=== PATIENT | female | born 1990 | race American Indian/Alaskan Native ===

== ENCOUNTER 2017-01-25 10:25 | Emergency (ER) | payer SELFPAY ==
[2017-01-25 11:05] LABS: Basophils % (Auto) 0.7 % (0.0-1.8); Eosinophils % (Auto) 0.7 % (0.0-4.3); Hematocrit 40.1 % (30.3-42.9); Hemoglobin 13.6 gm/dl (10.1-14.3); Mean Corpuscular HGB Conc 34 % (30-34); Mean Corpuscular Hemoglobin 31 pg (28-32); Mean Corpuscular Volume 92 fl (79-97); Platelet Count 431 K/mm3 (140-440); Red Blood Count 4.35 M/mm3 (3.65-5.03); Red Cell Distribution Width 14.5 % (13.2-15.2); White Blood Count 11.1 K/mm3 (4.5-11.0)
[2017-01-25 11:19] LABS: Bilirubin,Urine NEG (Negative); Blood,Urine NEG (Negative); Ketones,Urine NEG (Negative); Leukocyte Esterase,Urine TR (Negative); Mucus,Urine 1+ /HPF; Nitrite,Urine NEG (Negative); Protein,Urine <15 mg/dL mg/dL (Negative); Urobilinogen,Urine < 2.0 mg/dL (<2.0)
[2017-01-25 11:24] LABS: Alanine Aminotransferase 11 units/L (7-56); Albumin/Globulin Ratio 1.2 %; Alkaline Phosphatase 48 units/L (35-129); Anion Gap 21 mmol/L; BUN/Creatinine Ratio 16; Blood Urea Nitrogen 8 mg/dL (7-17); Calcium 9.4 mg/dL (8.4-10.2); Carbon Dioxide 19 mmol/L (22-30); Chloride 100.4 mmol/L (98-107); Glucose 90 mg/dL (65-100); Lipase 18 units/L (13-60); Sodium 136 mmol/L (137-145); Total Protein 7.4 g/dL (6.3-8.2)
--- NOTE | 2017-01-25 22:12 | Emergency Department Report ---
ED Abdominal Pain HPI - General Chief Complaint: Abdominal Pain Stated Complaint: SOB, LEFT SIDE NUMB Time Seen by Provider: 01/25/17 21:58 Source: patient Mode of arrival: Ambulatory Limitations: No Limitations - History of Present Illness Initial Comments: 26-year-old female with past medical history of left leg sciatica presents to Hospital complaining of left flank pain radiating to the left lower abdomen since yesterday of 4 PM. Pain is sharp, intermittent, related not associated to 6 hours movement and palpation. Intermittent nausea and vomiting (2) reported. Patient denies vaginal discharge, vaginal bleeding, dysuria, hematuria, or fever. test was positive here patient's LMP 2016. Patient has history of 2 previous pregnancies with a stillborn at approximately 4-5 months and an . No living children or history of ectopic . Patient also complains of left flank pain with tingling to back of the leg with prolonged sitting. Severity scale (0 -10): 10 - Related Data Previous Rx's Medication Instructions Recorded Last Taken Type Ciprofloxacin HCl [Ciprofloxacin 500 mg PO BID #6 tablet 05/13/15 Unknown Rx TAB] Vit Calc,Iron,Folic 1 each PO DAILY #30 tablet 01/26/17 Unknown Rx [ Vitamins] Allergies Allergy/AdvReac Type Severity Reaction Status Date / Time No Known Allergies Allergy Verified 01/25/17 10:36 ED Review of Systems ROS: Stated complaint: SOB, LEFT SIDE NUMB Other details as noted in HPI Comment: All other systems reviewed and negative Other: Constitutional: No fevers chills Eyes: No eye pain visual changes ENT: No ear pain or throat pain Neck: Denies pain Respiratory: Denies cough wheezing shortness of breath Cardiovascular: Denies chest pain, palpitations, syncope GI: As per HPI : Denies dysuria, urinary frequency, or urgency Musculoskeletal: Left flank pain Skin: Denies rash, lesions, erythema Neurologic: Denies headache, weakness Psychiatric: Denies suicidal ideation, hallucinations Hematological/lymphatic: Denies easy bruising, lymphadenopathy ED Past Medical Hx - Past Medical History Previous Medical History?: Yes Hx Hypertension: No Additional medical history: sciatica - Surgical History Additional Surgical History: left ring finger - Social History Smoking Status: Never Smoker Substance Use Type: Marijuana - Medications Home Medications: Home Medications Medication Instructions Recorded Confirmed Last Taken Type Ciprofloxacin HCl [Ciprofloxacin 500 mg PO BID #6 tablet 05/13/15 Unknown Rx TAB] Vit Calc,Iron,Folic 1 each PO DAILY #30 tablet 01/26/17 Unknown Rx [ Vitamins] ED Physical Exam - General Limitations: No Limitations - Other Other exam information: General: No limitations, patient is alert in no acute distress Head exam: Atraumatic, normocephalic Eyes exam: Normal appearance, pupils equal reactive to light, extraocular movements intact ENT: Moist mucous membrane, normal oropharynx Neck exam: Normal inspection, full range of motion, no meningismus nontender Respiratory exam: Clear to auscultation bilateral, no wheezes, rales, crackles Cardiovascular: Normal rate and rhythm, normal heart sounds Abdomen: Soft, nondistended, and nontender, with normal bowel sounds, no rebound, or guarding Extremity: Full range of motion normal inspection no deformity Back: Normal Inspection, full range of motion,, minimal left flank tenderness Neurologic: Alert, oriented x3, cranial nerves intact, no motor or sensory deficit Psychiatric: normal affect, normal mood Skin: Warm, dry, intact ED Course Vital Signs 01/25/17 01/25/17 01/25/17 10:36 20:02 22:21 Temperature 98.3 F Pulse Rate 66 76 74 Respiratory 18 14 16 Rate Blood Pressure 135/76 138/89 Blood Pressure 126/62 [Left] O2 Sat by Pulse 97 100 95 Oximetry - Reevaluation(s) Reevaluation #1: 01/25/17 22:12 Patient declined pain medication at this time ED Medical Decision Making - Lab Data Result diagrams: 01/25/17 10:46 01/25/17 10:46 Lab Results 01/25/17 01/25/17 01/25/17 Range/Units 10:46 10:46 10:46 WBC 11.1 H (4.5-11.0) K/mm3 RBC 4.35 (3.65-5.03) M/mm3 Hgb 13.6 (10.1-14.3) gm/dl Hct 40.1 (30.3-42.9) % MCV 92 (79-97) fl MCH 31 (28-32) pg MCHC 34 (30-34) % RDW 14.5 (13.2-15.2) % Plt Count 431 (140-440) K/mm3 Lymph % (Auto) 22.2 (13.4-35.0) % [place] % (Auto) 5.7 (0.0-7.3) % Eos % (Auto) 0.7 (0.0-4.3) % Baso % (Auto) 0.7 (0.0-1.8) % Lymph # 2.5 (1.2-5.4) K/mm3 [place] # 0.6 (0.0-0.8) K/mm3 Eos # 0.1 (0.0-0.4) K/mm3 Baso # 0.1 (0.0-0.1) K/mm3 Seg Neutrophils % 70.7 H (40.0-70.0) % Seg Neutrophils # 7.9 H (1.8-7.7) K/mm3 Sodium 136 L (137-145) mmol/L Potassium 4.0 (3.6-5.0) mmol/L Chloride 100.4 (98-107) mmol/L Carbon Dioxide 19 L (22-30) mmol/L Anion Gap 21 mmol/L BUN 8 (7-17) mg/dL Creatinine 0.5 L (0.7-1.2) mg/dL Estimated GFR > 60 ml/min BUN/Creatinine Ratio 16 % Glucose 90 (65-100) mg/dL Calcium 9.4 (8.4-10.2) mg/dL Total Bilirubin 0.30 (0.1-1.2) mg/dL AST 14 (5-40) units/L ALT 11 (7-56) units/L Alkaline Phosphatase 48 (35-129) units/L Total Protein 7.4 (6.3-8.2) g/dL Albumin 4.0 (3.9-5) g/dL Albumin/Globulin Ratio 1.2 % Lipase 18 (13-60) units/L HCG, Qual Positive (Negative) HCG, Quant (0-4) mIU/mL Urine Color (Yellow) Urine Turbidity (Clear) Urine pH (5.0-7.0) Ur Specific [place] (1.003-1.030) Urine Protein (Negative) mg/dL Urine Glucose (UA) (Negative) mg/dL Urine Ketones (Negative) mg/dL Urine Blood (Negative) Urine Nitrite (Negative) Urine Bilirubin (Negative) Urine Urobilinogen (<2.0) mg/dL Ur Leukocyte Esterase (Negative) Urine WBC (Auto) (0.0-6.0) /HPF Urine RBC (Auto) (0.0-6.0) /HPF U Epithel Cells (Auto) (0-13.0) /HPF Urine Mucus /HPF 01/25/17 01/25/17 Range/Units 10:46 Unknown WBC (4.5-11.0) K/mm3 RBC (3.65-5.03) M/mm3 Hgb (10.1-14.3) gm/dl Hct (30.3-42.9) % MCV (79-97) fl MCH (28-32) pg MCHC (30-34) % RDW (13.2-15.2) % Plt Count (140-440) K/mm3 Lymph % (Auto) (13.4-35.0) % [place] % (Auto) (0.0-7.3) % Eos % (Auto) (0.0-4.3) % Baso % (Auto) (0.0-1.8) % Lymph # (1.2-5.4) K/mm3 [place] # (0.0-0.8) K/mm3 Eos # (0.0-0.4) K/mm3 Baso # (0.0-0.1) K/mm3 Seg Neutrophils % (40.0-70.0) % Seg Neutrophils # (1.8-7.7) K/mm3 Sodium (137-145) mmol/L Potassium (3.6-5.0) mmol/L Chloride (98-107) mmol/L Carbon Dioxide (22-30) mmol/L Anion Gap mmol/L BUN (7-17) mg/dL Creatinine (0.7-1.2) mg/dL Estimated GFR ml/min BUN/Creatinine Ratio % Glucose (65-100) mg/dL Calcium (8.4-10.2) mg/dL Total Bilirubin (0.1-1.2) mg/dL AST (5-40) units/L ALT (7-56) units/L Alkaline Phosphatase (35-129) units/L Total Protein (6.3-8.2) g/dL Albumin (3.9-5) g/dL Albumin/Globulin Ratio % Lipase (13-60) units/L HCG, Qual (Negative) HCG, Quant 52025 H (0-4) mIU/mL Urine Color Yellow (Yellow) Urine Turbidity Clear (Clear) Urine pH 6.0 (5.0-7.0) Ur Specific [place] 1.023 (1.003-1.030) Urine Protein <15 mg/dl (Negative) mg/dL Urine Glucose (UA) Neg (Negative) mg/dL Urine Ketones Neg (Negative) mg/dL Urine Blood Neg (Negative) Urine Nitrite Neg (Negative) Urine Bilirubin Neg (Negative) Urine Urobilinogen < 2.0 (<2.0) mg/dL Ur Leukocyte Esterase Tr (Negative) Urine WBC (Auto) 1.0 (0.0-6.0) /HPF Urine RBC (Auto) 3.0 (0.0-6.0) /HPF U Epithel Cells (Auto) 7.0 (0-13.0) /HPF Urine Mucus 1+ /HPF - Radiology Data Radiology results: report reviewed Transvaginal pelvic ultrasound, single live IUP 7 weeks 5 days. No free fluid. Ovaries normal - Medical Decision Making Plan discharge patient with outpatient follow-up with [facility]. vitamins will be ordered and Tylenol as needed for pain. - Differential Diagnosis , UTI, sciatica, ectopic, ovarian cyst Critical Care Time: No Critical care attestation.: If time is entered above; I have spent that time in minutes in the direct care of this critically ill patient, excluding procedure time. ED Disposition Clinical Impression: 7 weeks gestation of , Sciatica, left side Disposition: DC-01 TO HOME OR SELFCARE Is pt being admited?: No Does the pt Need Aspirin: No Condition: Stable Instructions: (ED), Sciatica (ED) Additional Instructions: Take Tylenol as needed for pain. Follow up with the [facility] doctor. Return if symptoms worsen as indicated by yourr discharge instructions Prescriptions: Vit Calc,Iron,Folic [ Vitamins] 1 each PO DAILY #30 tablet Referrals: MING CAMPBELL MD [Staff Physician] - 3-5 Days Time of Disposition: 00:25
[2017-01-25 22:21] VITALS: BP 126/62
--- NOTE | 2017-01-25 23:29 | Ultrasound Report ---
FINAL REPORT EXAM: US OB TRANSVAGINAL HISTORY: left abd pain, + TECHNIQUE: Ultrasound obstetrical transvaginal with Doppler evaluation PRIORS: None. FINDINGS: There is gestational sac within the uterus There is pole present with crown-rump length of 1.4 centimeters corresponding to estimated gestational age is 7 weeks 5 days. With estimated date of delivery September 08, 2017 cardiac activity is present with heart rate of 160 beats per minute. Right ovary is 2.8 x 2.8 x 1.7 centimeters Left ovary is 2.2 x 1.8 x 1.7 centimeters Ovaries are normal in size and echogenicity no free fluid identified within the cul-de-sac IMPRESSION: Single live intrauterine gestation estimated at 7 weeks 5 days
--- NOTE | 2017-01-25 23:30 | Ultrasound Report ---
FINAL REPORT EXAM: US OB \T\lt; = 14 WEEKS FETUS HISTORY: left abd pain, + TECHNIQUE: Ultrasound obstetrical transabdominal PRIORS: None. FINDINGS: There is gestational sac within the uterus There is pole present with crown-rump length of 1.4 centimeters corresponding to estimated gestational age is 7 weeks 5 days. With estimated date of delivery September 08, 2017 cardiac activity is present with heart rate of 160 beats per minute. Right ovary is 2.8 x 2.8 x 1.7 centimeters Left ovary is 2.2 x 1.8 x 1.7 centimeters Ovaries are normal in size and echogenicity no free fluid identified within the cul-de-sac IMPRESSION: Single live intrauterine gestation estimated at 7 weeks 5 days
== END 2017-01-26 00:41 | disposition home or self-care (01) ==
LOC: ED 10:25
DX: O26.891 Other specified pregnancy related conditions, first trimester (principal); M54.32 Sciatica, left side; F12.10 Cannabis abuse, uncomplicated; Z3A.01 Less than 8 weeks gestation of pregnancy
CPT/HCPCS: 36415; 76801; 76817; 80053; 81001; 83690; 84702; 84703; 85025

== ENCOUNTER 2017-04-15 15:47 | Observation (INO) | payer MEDICAID ==
[2017-04-15] MEDS ORDERED: LACTATED RINGERS 500 ML IV ONE (16:09)
--- NOTE | 2017-04-15 17:30 | Ultrasound Report ---
FINAL REPORT PROCEDURE: US OB > = 14 WEEKS FETUS TECHNIQUE: Real-time transabdominal sonography of the uterus, placenta, amniotic fluid, adnexa, and fetus was performed with image documentation. Measurements were obtained to determine age/size. M-mode Doppler was used to document heartbeat. CPT 44254 HISTORY: Cervical length, placental location, EFW. COMPARISON: Sonogram dated 01/25/2017. FINDINGS: LMP: 11/24/2016. Clinical age: 20 weeks 2 days. EDC: 08/31/2017. GENERAL: IUP: Single living intrauterine . Position: Breech. Placental position: Fundal left lateral grade 0, without previa. Amniotic fluid volume: Normal. MATERNAL: Uterus: Within normal limits. Cervical length: 3.9 cm. Internal Os: Closed. FETUS: Heart rate and rhythm: 156 beats per minute anatomic survey: Normal. Choroid plexus, cisterna magna, cerebellum, ventricle, stomach, kidneys, bladder, diaphragm, four-chamber heart, three-vessel cord/insertion, and limited visualization of the spine. MEASUREMENTS: BPD: 4.82 cm, 20 weeks 4 days HC: 17.91 cm, 20 weeks 2 days AC: 15.01 cm, 20 weeks 2 days FL: 3.29 cm, 20 weeks 2 days HC/AC: 1.19 Cephalic index: 81.1 Mean Gestational Age (composite criteria): 20 weeks 3 days Estimated Weight: 344 grams. Interval growth: Appropriate. Estimated Due Date (earliest scan): 08/30/2017 IMPRESSION: Single intrauterine gestation at 20 weeks 3 days estimated due date: 08/30/2017. Normal survey with appropriate growth. Breech presentation. Fundal left lateral grade 0 placenta. Cervical length 3.9 cm. EFW 344 grams.
[2017-04-15] MEDS ORDERED: TYLENOL PO PRN (18:19)
[2017-04-15] MEDS ORDERED: MYLICON PO PRN (18:19)
[2017-04-15] MEDS ORDERED: BENADRYL PO PRN (18:19)
[2017-04-15] MEDS ORDERED: ALUM-MAG HYDROX-SIMETH 200-200-20MG/5ML PO PRN (18:19)
[2017-04-15] MEDS ORDERED: MILK OF MAGNESIA PO PRN (18:19)
[2017-04-15] MEDS ORDERED: AMBIEN PO PRN (18:19)
[2017-04-15] MEDS ORDERED: ZOFRAN IV PRN (18:19)
[2017-04-15] MEDS ORDERED: COLACE PO PRN (18:19)
[2017-04-15] MEDS ORDERED: SENOKOT S PO PRN (18:19)
--- NOTE | 2017-04-15 18:29 | History and Physical Report ---
History of Present Illness Date of examination: 04/15/17 Date of admission: 04/15/17 16:09 Chief complaint: vaginal bleeding History of present illness: This is a 27 yo at 20 weeks came to triage after having bleeding with clots when she went to bathroom and stood up. She had some cramping. She had good fm. patient has care at [facility] and has seen a High risk for hx of loss at 20 weeks. She deneis n,v,f, chills . no other complaints. 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 denies: smoking, alcohol abuse, prescription drug abuse - Obstetrical History Expected Date of Delivery: 08/31/17 Actual Gestation: 20 Week(s) 2 Day(s) : 2 Para: 0 Hx # Term Pregnancies: 0 Number of Pregnancies: 1 Spontaneous Abortions: 0 Induced : 0 Number of Living Children: 0 Medications and Allergies Allergies Allergy/AdvReac Type Severity Reaction Status Date / Time No Known Allergies Allergy Verified 04/15/17 16:07 Home Medications Medication Instructions Recorded Confirmed Last Taken Type Vit Calc,Iron,Folic 1 each PO DAILY #30 tablet 01/26/17 04/15/17 21:00 Rx [ Vitamins] 1 Review of Systems All systems: negative Genitourinary: vaginal bleeding - Vital Signs Vital signs: Vital Signs Pulse BP 73 120/71 04/15/17 16:09 04/15/17 16:09 Temp Pulse Resp BP Pulse Ox 97.9 F 71 18 120/71 98 04/15/17 17:54 04/15/17 16:25 04/15/17 17:54 04/15/17 16:09 04/15/17 16:25 - Physical Exam Vulva: both: normal Vagina: Positive: other (blood clot in the vault no active bleeding : minimal ) Cervix: Positive: other (long thick and closed and posterior ) Adnexa: both: normal Anus/Rectum: Positive: normal perianal skin, heme negative Extremities: Positive: normal Deep Tendon Reflex Grade: Normal +2 - Obstetrical FHR: auscultation normal Cervical Dilatation: 0 Uterine Contraction Pattern: Absent Uterine Tone Measurement Phase: Resting Results All other labs normal. Assessment and Plan A/P IUP 20 weeks breech vaginal bleeding US indicated no s/sx of abruption cervix 3.9cm will observe for 23hrs seen by [facility] will call for consult for recommendations close monitor pad counts CBC and type and screen, abruption labs NICU consult
[2017-04-15 18:49] LABS: Basophils # (Auto) 0.1 K/mm3 (0.0-0.1); Basophils % (Auto) 0.7 % (0.0-1.8); Eosinophils # (Auto) 0.1 K/mm3 (0.0-0.4); Eosinophils % (Auto) 0.9 % (0.0-4.3); Hematocrit 31.6 % (30.3-42.9); Hemoglobin 10.8 gm/dl (10.1-14.3); Lymphocytes # (Auto) 2.3 K/mm3 (1.2-5.4); Lymphocytes % (Auto) 19.2 % (13.4-35.0); Mean Corpuscular HGB Conc 34 % (30-34); Mean Corpuscular Hemoglobin 31 pg (28-32); Mean Corpuscular Volume 91 fl (79-97); Monocytes # (Auto) 0.7 K/mm3 (0.0-0.8); Monocytes % (Auto) 5.7 % (0.0-7.3); Platelet Count 350 K/mm3 (140-440); Red Blood Count 3.48 M/mm3 (3.65-5.03); Red Cell Distribution Width 13.1 % (13.2-15.2)
[2017-04-15] MEDS ORDERED: LACTATED RINGERS 1,000 ML IV SCH (19:00)
[2017-04-15 21:20] LABS: INR 0.95 (0.87-1.13)
[2017-04-15 21:21] LABS: Partial Thromboplastin Time 29.7 Sec. (24.2-36.6)
[2017-04-16 07:39] VITALS: BP 124/60
--- NOTE | 2017-04-16 08:04 | Progress Note ---
Assessment and Plan A/P HD#2 IUP 20 weeks breech vaginal bleeding decreased US indicated no s/sx of abruption cervix 3.[facility] per her verbal recommendations patient may be discharged and she will arrange for f/u with them this week strict bleeding precautions all questions answered appt with [facility] this week Subjective - Subjective Date of service: 04/16/17 Principal diagnosis: vaginal bleeding Interval history: This is a 27 yo at 20 weeks came to triage after having bleeding with clots when she went to bathroom and stood up. She had some cramping. She had good fm. patient has care at [facility] and has seen a High risk for hx of loss at 20 weeks. She deneis n,v,f, chills . no other complaints. Patient reports: vaginal bleeding (decreased to brown discharge), movement normal, no new complaints, no loss of fluid, no contractions Objective - Vital Signs Vital Signs: Vital Signs - 12hr 04/15/17 04/16/17 20:37 07:42 Temperature 98.6 F Pulse Rate 81 77 Respiratory 20 Rate Blood Pressure 118/71 124/60 - Exam Breasts: normal Cardiovascular: Regular rate, Normal S1 Lungs: Clear to auscultation, Normal air movement Abdomen: Present: normal appearance, soft, normal bowel sounds. Absent: distention, tenderness, guarding Vulva: both: normal Uterus: Present: normal. Absent: firm, bogginess, tenderness FHR: auscultation normal Extremities: normal Deep Tendon Reflex Grade: Normal +2 - Labs Labs: Abnormal Labs 04/15/17 17:55 WBC 12.1 H RBC 3.48 L RDW 13.1 L Seg Neutrophils % 73.5 H Seg Neutrophils # 8.9 H Laboratory Results - last 24 hr 04/15/17 04/15/17 04/15/17 17:55 17:55 20:17 WBC 12.1 H RBC 3.48 L Hgb 10.8 Hct 31.6 MCV 91 MCH 31 MCHC 34 RDW 13.1 L Plt Count 350 Lymph % (Auto) 19.2 [place] % (Auto) 5.7 Eos % (Auto) 0.9 Baso % (Auto) 0.7 Lymph # 2.3 [place] # 0.7 Eos # 0.1 Baso # 0.1 Seg Neutrophils % 73.5 H Seg Neutrophils # 8.9 H PT 13.2 INR 0.95 APTT 29.7 Blood Type O POSITIVE Antibody Screen Negative
[2017-04-16] MEDS ORDERED: PRENATAL VITAMIN PO SCH (10:00)
== END 2017-04-16 09:20 | disposition home or self-care (01) ==
LOC: TRG 15:47 → LD 16:09
PROVIDERS: ADMIT Obstetrics & Gynecology; ATTEND Obstetrics & Gynecology
DX: O46.92 Antepartum hemorrhage, unspecified, second trimester (principal); Z3A.20 20 weeks gestation of pregnancy
CPT/HCPCS: 36415; 76805; 85025; 85610; 85730; 86850; 86900; 86901; 96360; 96361; G0378; J7120

== ENCOUNTER 2019-01-01 15:30 | Outpatient (CLI) | payer MEDICAID ==
[2019-01-01 18:00] VITALS: BP 127/69
--- NOTE | 2019-01-01 18:55 | Ultrasound Report ---
Limited OB Ultrasound Biophysical profile HISTORY: labor. TECHNIQUE: Grayscale and color Doppler imaging performed. COMPARISON: No recent pertinent exam is available FINDINGS: There is a single intrauterine gestation which is cephalic in presentation. BREA is [address] [place] is positioned left lateral. The heart rate is 1 45 bpm. On biophysical profile, the fetus received a score of 2 out of 2 for breathing movement, movement, po sture, and BREA for a total score of 8 out of 8. IMPRESSION: 1. Single viable intrauterine gestation as above. 2. Normal biophysical profile. Signer Name: Dmitri Enriquez MD Signed: 01/01/2019 6:51 PM Workstation Name: [id number]
== END 2019-01-01 19:10 | disposition home or self-care (01) ==
LOC: TRG 15:30
PROVIDERS: ATTEND Obstetrics & Gynecology
DX: O47.03 False labor before 37 completed weeks of gestation, third trimester (principal); O36.8130 Decreased fetal movements, third trimester, not applicable or unspecified; O46.93 Antepartum hemorrhage, unspecified, third trimester; Z3A.33 33 weeks gestation of pregnancy
CPT/HCPCS: 59025; 76815; 76819